=== PATIENT | female | born 1995 | race African-American/Black ===

== ENCOUNTER → 2019-04-30 | Outpatient (CLI) | payer MEDICAID ==
[2014-07-11 00:35] VITALS: BP 149/53
[~2019-04-30] MED LIST: CEPH-263 PO; HYDR1TAB10 PO
--- NOTE | 2019-04-30 17:27 | RAD ---
PELVIS COMPLETE History: Abnormal uterine bleeding Comparison: None. Findings: Multiple transabdominal sonographic images of pelvis are submitted. Uterus measured 11.2 x 3.2 x 5.6 cm. Endometrium measured up to about 1.2 cm in greatest thickness, can be considered within normal limits for the patient's age. Right ovary measured 2.6 x 1.6 x 1.4 cm. Left ovary measured 2.2 x 1.9 x 1.2 cm. There is normal low resistance vascularity and color flow of the bilateral ovaries. No free fluid is demonstrated. Impression: 1. No significant abnormality is demonstrated, elongated appearance of uterus likely developmental. Endometrial thickness can be considered within normal limits in a patient this age. Electronically signed by: Parveen Martinez MD (04/30/2019 5:24 PM) [id number]
== END | disposition home or self-care (01) ==
LOC: US 13:00
PROVIDERS: ATTEND Obstetrics & Gynecology
DX: R93.9 Diagnostic imaging inconclusive due to excess body fat of patient (principal)
CPT/HCPCS: 76856